=== PATIENT | male | born 2000 | race Caucasian/White ===

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

== ENCOUNTER → 2019-07-15 | Outpatient (CLI) | payer OTHER | LOC: COL.RAD 13:25 | DX: S43.492A Other sprain of left shoulder joint, initial encounter (principal) | CPT/HCPCS: A9585; Q9967 ==

== ENCOUNTER 2020-07-12 01:56 | Emergency (ER) | payer OTHER ==
[~2020-07-12] VITALS: Ht 182.9 cm; Wt 100.0 kg
[2020-07-12 02:05] VITALS: TEMP 98.7
[2020-07-12 03:28] VITALS: BP 132/86; PULSE 97
== END 2020-07-12 03:28 | disposition home or self-care (01) ==
LOC: COL.ER 01:56
DX: S62.326A Displaced fracture of shaft of fifth metacarpal bone, right hand, initial encounter for closed fracture (principal); W19.XXXA Unspecified fall, initial encounter; Y92.009 Unspecified place in unspecified non-institutional (private) residence as the place of occurrence of the external cause

== ENCOUNTER 2020-08-24 10:55 | Outpatient (RCR) | payer OTHER | END 2020-09-02 14:28 | disposition home or self-care (01) | LOC: WSOT 10:55 | DX: S62.396A Other fracture of fifth metacarpal bone, right hand, initial encounter for closed fracture (principal); Z98.890 Other specified postprocedural states ==